=== PATIENT | male | born 1950 | race Caucasian/White ===

== ENCOUNTER 2016-04-18 10:13 | Emergency (ER) | payer OTHER ==
[2016-04-18] MEDS ORDERED: LISINOPRIL 10 MG TAB As Ordered ONE (10:42)
[2016-04-18 10:58] LABS: BASO % 0.6 % (0.0-1.0); EOS # 0.3 K/mm3 (0.0-0.50); EOS % 2.8 % (0.0-3.0); LARGE UNSTAINED CELL # 0.1 K/mm3 (0.0-0.4); LARGE UNSTAINED CELL % 1.5 % (0.0-4.0); LYMPH # 1.9 K/mm3 (1.5-4.5); LYMPH % 20.2 % (24.0-44.0); MEAN CORPUSCULAR HGB CONC 34.1 g/dl (32.0-36.5); MEAN CORPUSCULAR VOLUME 90.7 fl (80.0-96.0); MONO # 0.3 K/mm3 (0.0-0.8); MONO % 3.2 % (0.0-5.0); NEUTROPHILS # 6.9 K/mm3 (1.8-7.7); NEUTROPHILS % 71.7 % (36.0-66.0); PLATELET COUNT, AUTOMATED 208 k/mm3 (150-450); WHITE BLOOD COUNT 9.6 K/mm3 (4.0-10.0)
[2016-04-18 11:25] LABS: ALBUMIN 3.9 GM/DL (3.2-5.2); ALBUMIN/GLOBULIN RATIO 1.15 (1.00-1.93); ALKALINE PHOSPHATASE 104 U/L (45-117); ALT/SGPT 73 U/L (12-78); ANION GAP 11 MEQ/L (8-16); AST/SGOT 40 U/L (15-37); BILIRUBIN,DIRECT < 0.1 MG/DL (0.0-0.2); BILIRUBIN,TOTAL 0.2 MG/DL (0.2-1.0); BLOOD UREA NITROGEN 18 MG/DL (7-18); CALCIUM LEVEL 9.1 MG/DL (8.8-10.2); CARBON DIOXIDE LEVEL 25 MEQ/L (21-32); CHLORIDE LEVEL 106 MEQ/L (98-107); CREATININE FOR GFR 1.57 MG/DL (0.70-1.30); GLOMERULAR FILTRATION RATE 47.6 (>49); GLUCOSE, FASTING 146 MG/DL (80-110); POTASSIUM SERUM 4.3 MEQ/L (3.5-5.1); SODIUM LEVEL 142 MEQ/L (136-145); TOTAL PROTEIN 7.3 GM/DL (6.4-8.2)
[2016-04-18] MEDS ORDERED: METOPROLOL TART 50 MG TAB As Ordered ONE (12:06)
--- NOTE | 2016-04-18 13:40 | EDDOCDS ---
Physician Documentation [facility] Name: Hesham Pollock Age: 65 yrs Sex: Male : 1950 Arrival Date: 04/18/2016 Time: 10:13 Bed PR Private MD: No Pcp Disposition: 04/18/16 13:21 Discharged to Home/Self Care. Impression: Essential (primary) hypertension. - Condition is Stable. - Discharge Instructions: Hypertension. - Prescriptions for Metoprolol Tartrate 25 mg Oral Tablet - take 1 tablet by ORAL route 2 times per day with a meal; 20 tablet. - Medication Reconciliation, Local Pharmacy Hours form. - [facility]; When: Call to arrange an appointment; Reason: Further diagnostic work-up, Recheck today's complaints, Continuance of care. - Problem is an ongoing problem. - Symptoms are unchanged. Historical: - Allergies: no known allergies; - Home Meds: 1. aspirin 81 mg Oral cpDR 81 mg daily (Last dose: 04/18/2016) - PMHx: none; - PSHx: none; - Social history: Smoking status: Patient uses tobacco products, current every day smoker. No barriers to communication noted, The patient speaks fluent Croatian, Speaks appropriately for age. - Family history: Not pertinent. - : The pt / caregiver states he / she is not on anticoagulants. Home medication list is obtained from the patient. - Exposure Risk Screening:: None identified. Vital Signs: 04/18 10:17 BP 201 / 100; Pulse 107; Resp 18 S; Temp 98.3(O); Pulse Ox 97% on R/A; Weight 94.8 kg / gr2 209 lbs (R); Height 5 ft. 10 in. (177.80 cm) (R); Pain 2/10; 10:25 BP 178 / 92 RA Sitting (man/); ead 12:03 BP 182 / 98 RA Sitting (man/lg); jc4 12:03 jc4 13:14 BP 157 / 86; Pulse 76; Resp 18; Pulse Ox 96% on R/A; ar3 10:17 Body Mass Index 29.99 (94.80 kg, 177.80 cm) gr2 12:03 Kelly Martin NP notified of patient blood pressure jc4 MDM: 10:39 Lisinopril 20 mg PO once ordered. ke 10:40 Basic Metabolic Profile Ordered. EDMS 10:40 CBC with Diff Ordered. EDMS 10:40 Cardiac Injury Profile Ordered. EDMS 10:40 Troponin Ordered. EDMS 10:40 Liver Profile Ordered. EDMS 10:41 ECG WITH READING ER PHYS+CARDIAG ordered. EDMS 10:49 Financial registration complete. pm4 10:59 [facility] Payment Agreement was scanned into [employer] and attached to record. pm4 11:28 Basic Metabolic Profile Reviewed. ke 11:28 CBC with Diff Reviewed. ke 11:28 Liver Profile Reviewed. ke 11:28 Cardiac Injury Profile Reviewed. ke 11:28 Troponin Reviewed. ke 12:04 Metoprolol (Tartrate) 50 mg PO once ordered. ke Administered Medications: 10:58 Drug: Lisinopril 20 mg [lisinopril 10 mg tablet (2 tabs)] Route: PO; jc4 12:09 Drug: Metoprolol 50 mg [metoprolol tartrate 50 mg tablet (1 tabs)] Route: PO; jc4 Signatures: Dispatcher [employer] EDMS Jamil Martin, STATISTICAL PROGRAMMER ANALYST STATISTICAL PROGRAMMER ANALYST Haydee Zabala,RN RN rs3 Sera Bain RN RN jc4 Sarika Smith,RN RN ead Raciel Perales, Rory Reg pm4 The chart was reviewed and I authenticate all verbal orders and agree with the evaluation and treatment provided.Attachments: 10:59 [facility] Payment Agreement pm4 MTDD
--- NOTE | 2016-04-18 13:40 | EDDOCDS ---
Nurse's Notes [facility] Name: Hesham Pollock Age: 65 yrs Sex: Male : 1950 Arrival Date: 04/18/2016 Time: 10:13 Bed PR Private MD: No Pcp Diagnosis: Essential (primary) hypertension Presentation: 04/18 10:25 Presenting complaint: Child states: daughter reports pt was seen at [facility] the other ead day and had elevated BP. denies hx of hypertension. Pt does not have primary but is to be seen by Dr. Dwyer in July. Daughter called [facility] ready today regarding high blood pressure and told to come to ER. Pt denies headache, dizziness, chest pain. Adult Sepsis Screening: The patient does not have new or worsening altered mentation. Patient's respiratory rate is less than 22. Systolic blood pressure is greater than 100. Patient has a qSOFA score of 0- Negative Sepsis Screen. Suicide/Homicide risk assessment- the patient denies having any suicidal and/or homicidal ideations and does not present with any other emotional, behavioral or mental health complaints. 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 Transition of care: patient was not received from another setting of care. 10:25 Acuity: PRECIOUS Level 3 ead 10:25 Method Of Arrival: Walkin/Carried/Asstd ead Triage Assessment: 10:27 General: Appears in no apparent distress, comfortable, Behavior is appropriate for age, ead cooperative, pleasant. Pain: Denies pain. Neurological: Level of Consciousness is awake, alert, Oriented to person, place, time, Denies dizziness, headache. Cardiovascular: Chest pain is denied. Respiratory: Denies shortness of breath. Derm: Skin is pink, warm & dry. 10:28 Pt Declines HIV testing. ead Historical: - Allergies: no known allergies; - Home Meds: 1. aspirin 81 mg Oral cpDR 81 mg daily (Last dose: 04/18/2016) - PMHx: none; - PSHx: none; - Social history: Smoking status: Patient uses tobacco products, current every day smoker. No barriers to communication noted, The patient speaks fluent Mexican, Speaks appropriately for age. - Family history: Not pertinent. - : The pt / caregiver states he / she is not on anticoagulants. Home medication list is obtained from the patient. - Exposure Risk Screening:: None identified. Screenin:09 Screening information is obtained from the patient. Fall risk: No risks identified. jc4 Assistance ADL's: requires no assistance with activities of daily living. Abuse/DV Screen: The patient / caregiver reports he/she is: not in a situation that causes fear, pain or injury. Nutritional screening: No deficits noted. Advance Directives: Currently, there is no health care proxy. There is no active DNR order. There is no living will. There is no Power of Equipment Engineering Technician. home support is adequate. Assessment: 12:11 General: Appears in no apparent distress, Behavior is cooperative, pleasant. jc4 Neurological: Level of Consciousness is awake, alert, Oriented to person, place, time, Denies blurred vision dizziness, headache. EENT: Oral mucosa is moist. Cardiovascular: Heart tones S1 S2 present. Respiratory: Airway is patent Respiratory effort is even, unlabored, Respiratory pattern is regular, symmetrical. Derm: Skin is pink, warm & dry. Vital Signs: 10:17 BP 201 / 100; Pulse 107; Resp 18 S; Temp 98.3(O); Pulse Ox 97% on R/A; Weight 94.8 kg gr2 (R); Height 5 ft. 10 in. (177.80 cm) (R); Pain 2/10; 10:25 BP 178 / 92 RA Sitting (man/); ead 12:03 BP 182 / 98 RA Sitting (man/lg); jc4 12:03 jc4 13:14 BP 157 / 86; Pulse 76; Resp 18; Pulse Ox 96% on R/A; ar3 10:17 Body Mass Index 29.99 (94.80 kg, 177.80 cm) gr2 12:03 Kelly Martin NP notified of patient blood pressure jc4 Vitals: 10:17 Log In Time: April 18, 2016 at 10:17. RN notified that patient meets Red Flag gr2 criteria. ED Course: 10:15 Patient visited by Deepak Swenson. gr2 10:15 Patient moved to Waiting gr2 10:16 No Pcp is Private Physician. gr2 10:22 Patient visited by Deepak Swenson. gr2 10:22 Patient moved to Pre RCE gr2 10:27 Triage Initiated ead 10:31 Patient moved to Triage 1 ead 10:35 [facility] ke 10:35 Patient visited by Jamil Martin FNP. ke 10:35 Patient visited by Jamil Martin FNP. ke 10:48 Patient name changed from Hesham\S\M\S\Kingsley\S\ to Hesham\S\Edgard\S\Kingsley. EDMS 10:48 EKG done. (by ED staff). Reviewed by Jamil GIPSON. ar3 10:49 Patient visited by Maki Brown PCA. ar3 10:53 Liver Profile Sent. ar3 10:53 Basic Metabolic Profile Sent. ar3 10:53 CBC with Diff Sent. ar3 10:53 Cardiac Injury Profile Sent. ar3 10:53 Troponin Sent. ar3 10:58 Patient moved to TR3 jc4 10:59 [facility] Payment Agreement was scanned into [employer] and attached to record. pm4 11:14 Patient visited by Jamil Martin FNP. ke 11:44 Patient visited by Jamil Martin FNP. ke 11:59 Patient moved to PR2 / 26 jc4 12:08 The patient / caregiver is instructed regarding the plan of care and ED course. jc4 12:13 Patient moved to TR1 jc4 12:21 Patient visited by Jamil Martin FNP. ke 12:58 Patient visited by Jamil Martin FNP. ke 13:08 Patient moved to PR1 / 25 ead 13:14 Patient visited by Maki Brown PCA. ar3 13:21 [facility] is Referral Physician. ke 13:38 No IV's were initiated during this patient's visit. No procedures done that require rs3 assistance. Administered Medications: 10:58 Drug: Lisinopril 20 mg [lisinopril 10 mg tablet (2 tabs)] Route: PO; jc4 12:09 Drug: Metoprolol 50 mg [metoprolol tartrate 50 mg tablet (1 tabs)] Route: PO; jc4 Order Results: Lab Order: Basic Metabolic Profile; SPEC'M 04/18/16 10:52 Test: GLUCOSE, FASTING; Value: 146; Range: 80-110; Abnormal: Above high normal; Units: MG/DL; Status: F Test: BLOOD UREA NITROGEN; Value: 18; Range: 7-18; Units: MG/DL; Status: F Test: CREATININE FOR GFR; Value: 1.57; Range: 0.70-1.30; Abnormal: Above high normal; Units: MG/DL; Status: F Test: GLOMERULAR FILTRATION RATE; Value: 47.6; Range: >49; Abnormal: Below low normal; Status: F Test: SODIUM LEVEL; Value: 142; Range: 136-145; Units: MEQ/L; Status: F Test: POTASSIUM SERUM; Value: 4.3; Range: 3.5-5.1; Units: MEQ/L; Status: F Test: CHLORIDE LEVEL; Value: 106; Range: 98-107; Units: MEQ/L; Status: F Test: CARBON DIOXIDE LEVEL; Value: 25; Range: 21-32; Units: MEQ/L; Status: F Test: ANION GAP; Value: 11; Range: 8-16; Units: MEQ/L; Status: F Test: CALCIUM LEVEL; Value: 9.1; Range: 8.8-10.2; Units: MG/DL; Status: F Test Note: ; Units are mL/min/1.73 m2 Chronic Kidney Disease Staging per NKF: Stage I & II GFR >=60 Normal to Mildly Decreased Stage III GFR 30-59 Moderately Decreased Stage IV GFR 15-29 Severely Decreased Stage V GFR <15 Very Little GFR Left ESRD GFR <15 on ENGINEERING SYSTEMS ANALYST Lab Order: CBC with Diff; SPEC'M 04/18/16 10:52 Test: WHITE BLOOD COUNT; Value: 9.6; Range: 4.0-10.0; Units: K/mm3; Status: F Test: RED BLOOD COUNT; Value: 5.47; Range: 4.30-6.10; Units: M/mm3; Status: F Test: HEMOGLOBIN; Value: 16.9; Range: 14.0-18.0; Units: g/dl; Status: F Test: HEMATOCRIT; Value: 49.6; Range: 42.0-52.0; Units: %; Status: F Test: MEAN CORPUSCULAR VOLUME; Value: 90.7; Range: 80.0-96.0; Units: fl; Status: F Test: MEAN CORPUSCULAR HEMOGLOBIN; Value: 31.0; Range: 27.0-33.0; Units: pg; Status: F Test: MEAN CORPUSCULAR HGB CONC; Value: 34.1; Range: 32.0-36.5; Units: g/dl; Status: F Test: RED CELL DISTRIBUTION WIDTH; Value: 12.0; Range: 11.5-14.5; Units: %; Status: F Test: PLATELET COUNT, AUTOMATED; Value: 208; Range: 150-450; Units: k/mm3; Status: F Test: NEUTROPHILS %; Value: 71.7; Range: 36.0-66.0; Abnormal: Above high normal; Units: %; Status: F Test: LYMPH %; Value: 20.2; Range: 24.0-44.0; Abnormal: Below low normal; Units: %; Status: F Test: MONO %; Value: 3.2; Range: 0.0-5.0; Units: %; Status: F Test: EOS %; Value: 2.8; Range: 0.0-3.0; Units: %; Status: F Test: BASO %; Value: 0.6; Range: 0.0-1.0; Units: %; Status: F Test: LARGE UNSTAINED CELL %; Value: 1.5; Range: 0.0-4.0; Units: %; Status: F Test: NEUTROPHILS #; Value: 6.9; Range: 1.8-7.7; Units: K/mm3; Status: F Test: LYMPH #; Value: 1.9; Range: 1.5-4.5; Units: K/mm3; Status: F Test: MONO #; Value: 0.3; Range: 0.0-0.8; Units: K/mm3; Status: F Test: EOS #; Value: 0.3; Range: 0.0-0.50; Units: K/mm3; Status: F Test: BASO #; Value: 0.0; Range: 0.0-0.2; Units: K/mm3; Status: F Test: LARGE UNSTAINED CELL #; Value: 0.1; Range: 0.0-0.4; Units: K/mm3; Status: F Lab Order: Cardiac Injury Profile; SPEC'M 04/18/16 10:52 Test: CPK CREATINE PHOSPHOKINASE; Value: 53; Range: 39-308; Units: U/L; Status: F Test: CK-MB VALUE MASS; Value: 1.0; Range: 0.0-3.6; Units: NG/ML; Status: F Test: MB/CK RELATIVE INDEX; Value: 1.88; Range: < OR =4; Status: F Test Note: ; DIAGNOSIS CRITERIA MMB ng/ml Relative Index (RI) NON-AMI < or = 5 N/A BURRIS ZONE > 5 < or = 4 AMI > 5 > 4 Lab Order: Troponin; SPEC'M 04/18/16 10:52 Test: TROPONIN I; Value: < 0.02; Range: < 0.10; Units: NG/ML; Status: F Test Note: ; Troponin I Reference Interval for [employer] LOCI: 99th Percentile= 0.00-0.045 ng/ml Risk Stratification: <= 0.10 ng/ml Decreased Risk for Adverse Clinical Events. 0.10-1.50 ng/ml Increased Risk for Adverse Clinical Events. Evaluation of additional criterion and/or repeat testing in 2-6 hours is suggested to rule out myocardial damage. >= 1.50 ng/ml Indicative of Myocardial Injury. Lab Order: Liver Profile; SPEC'M 04/18/16 10:52 Test: AST/SGOT; Value: 40; Range: 15-37; Abnormal: Above high normal; Units: U/L; Status: F Test: ALT/SGPT; Value: 73; Range: 12-78; Units: U/L; Status: F Test: ALKALINE PHOSPHATASE; Value: 104; Range: 45-117; Units: U/L; Status: F Test: BILIRUBIN,TOTAL; Value: 0.2; Range: 0.2-1.0; Units: MG/DL; Status: F Test: BILIRUBIN,DIRECT; Value: < 0.1; Range: 0.0-0.2; Units: MG/DL; Status: F Test: TOTAL PROTEIN; Value: 7.3; Range: 6.4-8.2; Units: GM/DL; Status: F Test: ALBUMIN; Value: 3.9; Range: 3.2-5.2; Units: GM/DL; Status: F Test: ALBUMIN/GLOBULIN RATIO; Value: 1.15; Range: 1.00-1.93; Status: F Outcome: 13:21 Discharge ordered by Provider. rossi 13:37 Discharge Assessment: patient administered narcotics - no. The following High Risk rs3 Discharge criteria are identified: None. Discharged to home with family. Condition: stable. Discharge instructions given to patient, Instructed on discharge instructions, follow up and referral plans. medication usage, Demonstrated understanding of instructions, medications, Pt was receptive of discharge instructions/ teaching. Prescriptions given X 1. No special radiology studies were completed. Property :Personal belongings accompany Pt. 13:39 Patient left the ED. rs3 Signatures: Dispatcher [employer] EDMS Jamil Martin, ENTERTAINMENT DANCER ENTERTAINMENT DANCER Haydee ZabalaRN RN rs3 Maki Brown, ROSE GRADER ROSE GRADER ar3 Sera Bain RN RN jc4 Deepak Swenson2 Sarika Smith,RN RN Raciel Bobby, Reg Reg pm4 KALLI
--- NOTE | 2016-04-19 19:44 | ECGEPIP ---
Stationary ECG Study [facility] - ED Test Date: 2016-04-18 Pat Name: JODEE GUTIERREZ Department: Room: - Gender: M Community Outreach Worker: lilia : 1950 Requested By: PHILIP GIPSON Order Number: [id number] Reading MD: Laura Fisher Measurements Intervals Reagan Rate: 112 P: 59 AR: 160 QRS: 13 QRSD: 98 T: 2 QT: 326 QTc: 445 Interpretive Statements SINUS TACHYCARDIA INFERIOR MYOCARDIAL INFARCTION, OF INDETERMINATE AGE CLINICAL CORRELATION NO PRIOR FOR COMPARISON Electronically Signed On 04-19-2016 19:43:58 EST by Laura Fisher
--- NOTE | 2016-04-20 14:40 | EDDOCDS ---
Physician Documentation [facility] Name: Hesham Pollock Age: 65 yrs Sex: Male : 1950 Arrival Date: 04/18/2016 Time: 10:13 Bed PR Private MD: No Pcp Disposition: 04/18/16 13:21 Discharged to Home/Self Care. Impression: Essential (primary) hypertension. - Condition is Stable. - Discharge Instructions: Hypertension. - Prescriptions for Metoprolol Tartrate 25 mg Oral Tablet - take 1 tablet by ORAL route 2 times per day with a meal; 20 tablet. - Medication Reconciliation, Local Pharmacy Hours form. - [facility]; When: Call to arrange an appointment; Reason: Further diagnostic work-up, Recheck today's complaints, Continuance of care. - Problem is an ongoing problem. - Symptoms are unchanged. Historical: - Allergies: no known allergies; - Home Meds: 1. aspirin 81 mg Oral cpDR 81 mg daily (Last dose: 04/18/2016) - PMHx: none; - PSHx: none; - Social history: Smoking status: Patient uses tobacco products, current every day smoker. No barriers to communication noted, The patient speaks fluent Welsh, Speaks appropriately for age. - Family history: Not pertinent. - : The pt / caregiver states he / she is not on anticoagulants. Home medication list is obtained from the patient. - Exposure Risk Screening:: None identified. Vital Signs: 04/18 10:17 BP 201 / 100; Pulse 107; Resp 18 S; Temp 98.3(O); Pulse Ox 97% on R/A; Weight 94.8 kg / gr2 209 lbs (R); Height 5 ft. 10 in. (177.80 cm) (R); Pain 2/10; 10:25 BP 178 / 92 RA Sitting (man/); ead 12:03 BP 182 / 98 RA Sitting (man/lg); jc4 12:03 jc4 13:14 BP 157 / 86; Pulse 76; Resp 18; Pulse Ox 96% on R/A; ar3 10:17 Body Mass Index 29.99 (94.80 kg, 177.80 cm) gr2 12:03 Kelly Martin NP notified of patient blood pressure jc4 MDM: 10:39 Lisinopril 20 mg PO once ordered. ke 10:40 Basic Metabolic Profile Ordered. EDMS 10:40 CBC with Diff Ordered. EDMS 10:40 Cardiac Injury Profile Ordered. EDMS 10:40 Troponin Ordered. EDMS 10:40 Liver Profile Ordered. EDMS 10:41 ECG WITH READING ER PHYS+CARDIAG ordered. EDMS 10:49 Financial registration complete. pm4 10:59 [facility] Payment Agreement was scanned into [employer] and attached to record. pm4 11:28 Basic Metabolic Profile Reviewed. ke 11:28 CBC with Diff Reviewed. ke 11:28 Liver Profile Reviewed. ke 11:28 Cardiac Injury Profile Reviewed. ke 11:28 Troponin Reviewed. ke 12:04 Metoprolol (Tartrate) 50 mg PO once ordered. ke 04/19 02:22 T-Sheet-- Draft Copy was scanned into [employer] and attached to record. hs2 10:36 ECG/EKG was scanned into [employer] and attached to record. gb Administered Medications: 04/18 10:58 Drug: Lisinopril 20 mg [lisinopril 10 mg tablet (2 tabs)] Route: PO; jc4 12:09 Drug: Metoprolol 50 mg [metoprolol tartrate 50 mg tablet (1 tabs)] Route: PO; jc4 Signatures: Dispatcher [employer] EDMS Tessa Oliveira, Reg Reg gb Jamil Martin, ENVIRONMENTAL SERVICE AIDE ENVIRONMENTAL SERVICE AIDE Haydee ZabalaRN RN rs3 Sera Bain RN RN jc4 Sarika SmithRN RN Carmela Arcos, Reg Reg hs2 Raciel Perales, Reg Reg pm4 The chart was reviewed and I authenticate all verbal orders and agree with the evaluation and treatment provided.Attachments: 10:59 [facility] Payment Agreement pm4 04/19 02:22 T-Sheet-- Draft Copy hs2 10:36 ECG/EKG gb Chart Complete MTDD
--- NOTE | 2016-04-20 14:40 | EDDOCDS ---
Nurse's Notes [facility] Name: Hesham Pollock Age: 65 yrs Sex: Male : 1950 Arrival Date: 04/18/2016 Time: 10:13 Bed PR Private MD: No Pcp Diagnosis: Essential (primary) hypertension Presentation: 04/18 10:25 Presenting complaint: Child states: daughter reports pt was seen at [facility] the other ead day and had elevated BP. denies hx of hypertension. Pt does not have primary but is to be seen by Dr. Dwyer in July. Daughter called [facility] ready today regarding high blood pressure and told to come to ER. Pt denies headache, dizziness, chest pain. Adult Sepsis Screening: The patient does not have new or worsening altered mentation. Patient's respiratory rate is less than 22. Systolic blood pressure is greater than 100. Patient has a qSOFA score of 0- Negative Sepsis Screen. Suicide/Homicide risk assessment- the patient denies having any suicidal and/or homicidal ideations and does not present with any other emotional, behavioral or mental health complaints. 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 Transition of care: patient was not received from another setting of care. 10:25 Acuity: PRECIOUS Level 3 ead 10:25 Method Of Arrival: Walkin/Carried/Asstd ead Triage Assessment: 10:27 General: Appears in no apparent distress, comfortable, Behavior is appropriate for age, ead cooperative, pleasant. Pain: Denies pain. Neurological: Level of Consciousness is awake, alert, Oriented to person, place, time, Denies dizziness, headache. Cardiovascular: Chest pain is denied. Respiratory: Denies shortness of breath. Derm: Skin is pink, warm & dry. 10:28 Pt Declines HIV testing. ead Historical: - Allergies: no known allergies; - Home Meds: 1. aspirin 81 mg Oral cpDR 81 mg daily (Last dose: 04/18/2016) - PMHx: none; - PSHx: none; - Social history: Smoking status: Patient uses tobacco products, current every day smoker. No barriers to communication noted, The patient speaks fluent Nauruan, Speaks appropriately for age. - Family history: Not pertinent. - : The pt / caregiver states he / she is not on anticoagulants. Home medication list is obtained from the patient. - Exposure Risk Screening:: None identified. Screenin:09 Screening information is obtained from the patient. Fall risk: No risks identified. jc4 Assistance ADL's: requires no assistance with activities of daily living. Abuse/DV Screen: The patient / caregiver reports he/she is: not in a situation that causes fear, pain or injury. Nutritional screening: No deficits noted. Advance Directives: Currently, there is no health care proxy. There is no active DNR order. There is no living will. There is no Power of Bark Peeler. home support is adequate. Assessment: 12:11 General: Appears in no apparent distress, Behavior is cooperative, pleasant. jc4 Neurological: Level of Consciousness is awake, alert, Oriented to person, place, time, Denies blurred vision dizziness, headache. EENT: Oral mucosa is moist. Cardiovascular: Heart tones S1 S2 present. Respiratory: Airway is patent Respiratory effort is even, unlabored, Respiratory pattern is regular, symmetrical. Derm: Skin is pink, warm & dry. Vital Signs: 10:17 BP 201 / 100; Pulse 107; Resp 18 S; Temp 98.3(O); Pulse Ox 97% on R/A; Weight 94.8 kg gr2 (R); Height 5 ft. 10 in. (177.80 cm) (R); Pain 2/10; 10:25 BP 178 / 92 RA Sitting (man/); ead 12:03 BP 182 / 98 RA Sitting (man/lg); jc4 12:03 jc4 13:14 BP 157 / 86; Pulse 76; Resp 18; Pulse Ox 96% on R/A; ar3 10:17 Body Mass Index 29.99 (94.80 kg, 177.80 cm) gr2 12:03 Kelly Martin NP notified of patient blood pressure jc4 Vitals: 10:17 Log In Time: April 18, 2016 at 10:17. RN notified that patient meets Red Flag gr2 criteria. ED Course: 10:15 Patient visited by eDepak Swenson. gr2 10:15 Patient moved to Waiting gr2 10:16 No Pcp is Private Physician. gr2 10:22 Patient visited by Deepak Swenson. gr2 10:22 Patient moved to Pre RCE gr2 10:27 Triage Initiated ead 10:31 Patient moved to Triage 1 ead 10:35 Jam[facility] FNP [facility]. ke 10:35 Patient visited by Jamil Martin FNP. ke 10:35 Patient visited by Jamil Martin FNP. ke 10:48 Patient name changed from Hesham\S\M\S\Hollsopple\S\ to Hesham\S\Edgard\S\Hollsopple. EDMS 10:48 EKG done. (by ED staff). Reviewed by Jamil GIPSON. ar3 10:49 Patient visited by Maki Brown PCA. ar3 10:53 Liver Profile Sent. ar3 10:53 Basic Metabolic Profile Sent. ar3 10:53 CBC with Diff Sent. ar3 10:53 Cardiac Injury Profile Sent. ar3 10:53 Troponin Sent. ar3 10:58 Patient moved to TR3 jc4 10:59 [facility] Payment Agreement was scanned into [email or web address] and attached to record. pm4 11:14 Patient visited by Jamil Martin FNP. ke 11:44 Patient visited by Jamil Martin FNP. ke 11:59 Patient moved to PR2 / 26 jc4 12:08 The patient / caregiver is instructed regarding the plan of care and ED course. jc4 12:13 Patient moved to TR1 jc4 12:21 Patient visited by Jamil Martin FNP. ke 12:58 Patient visited by Jamil Martin FNP. ke 13:08 Patient moved to PR1 / 25 ead 13:14 Patient visited by Maki Brown PCA. ar3 13:21 [facility] is Referral Physician. ke 13:38 No IV's were initiated during this patient's visit. No procedures done that require rs3 assistance. 04/19 02:22 T-Sheet-- Draft Copy was scanned into [email or web address] and attached to record. hs2 10:36 ECG/EKG was scanned into [email or web address] and attached to record. gb 20:25 EKG-ADULT Returned. EDMS Administered Medications: 04/18 10:58 Drug: Lisinopril 20 mg [lisinopril 10 mg tablet (2 tabs)] Route: PO; jc4 12:09 Drug: Metoprolol 50 mg [metoprolol tartrate 50 mg tablet (1 tabs)] Route: PO; jc4 Order Results: Lab Order: Basic Metabolic Profile; SPEC'M 04/18/16 10:52 Test: GLUCOSE, FASTING; Value: 146; Range: 80-110; Abnormal: Above high normal; Units: MG/DL; Status: F Test: BLOOD UREA NITROGEN; Value: 18; Range: 7-18; Units: MG/DL; Status: F Test: CREATININE FOR GFR; Value: 1.57; Range: 0.70-1.30; Abnormal: Above high normal; Units: MG/DL; Status: F Test: GLOMERULAR FILTRATION RATE; Value: 47.6; Range: >49; Abnormal: Below low normal; Status: F Test: SODIUM LEVEL; Value: 142; Range: 136-145; Units: MEQ/L; Status: F Test: POTASSIUM SERUM; Value: 4.3; Range: 3.5-5.1; Units: MEQ/L; Status: F Test: CHLORIDE LEVEL; Value: 106; Range: 98-107; Units: MEQ/L; Status: F Test: CARBON DIOXIDE LEVEL; Value: 25; Range: 21-32; Units: MEQ/L; Status: F Test: ANION GAP; Value: 11; Range: 8-16; Units: MEQ/L; Status: F Test: CALCIUM LEVEL; Value: 9.1; Range: 8.8-10.2; Units: MG/DL; Status: F Test Note: ; Units are mL/min/1.73 m2 Chronic Kidney Disease Staging per NKF: Stage I & II GFR >=60 Normal to Mildly Decreased Stage III GFR 30-59 Moderately Decreased Stage IV GFR 15-29 Severely Decreased Stage V GFR <15 Very Little GFR Left ESRD GFR <15 on SENIOR RESERVOIR ENGINEER Lab Order: CBC with Diff; SPEC'M 04/18/16 10:52 Test: WHITE BLOOD COUNT; Value: 9.6; Range: 4.0-10.0; Units: K/mm3; Status: F Test: RED BLOOD COUNT; Value: 5.47; Range: 4.30-6.10; Units: M/mm3; Status: F Test: HEMOGLOBIN; Value: 16.9; Range: 14.0-18.0; Units: g/dl; Status: F Test: HEMATOCRIT; Value: 49.6; Range: 42.0-52.0; Units: %; Status: F Test: MEAN CORPUSCULAR VOLUME; Value: 90.7; Range: 80.0-96.0; Units: fl; Status: F Test: MEAN CORPUSCULAR HEMOGLOBIN; Value: 31.0; Range: 27.0-33.0; Units: pg; Status: F Test: MEAN CORPUSCULAR HGB CONC; Value: 34.1; Range: 32.0-36.5; Units: g/dl; Status: F Test: RED CELL DISTRIBUTION WIDTH; Value: 12.0; Range: 11.5-14.5; Units: %; Status: F Test: PLATELET COUNT, AUTOMATED; Value: 208; Range: 150-450; Units: k/mm3; Status: F Test: NEUTROPHILS %; Value: 71.7; Range: 36.0-66.0; Abnormal: Above high normal; Units: %; Status: F Test: LYMPH %; Value: 20.2; Range: 24.0-44.0; Abnormal: Below low normal; Units: %; Status: F Test: MONO %; Value: 3.2; Range: 0.0-5.0; Units: %; Status: F Test: EOS %; Value: 2.8; Range: 0.0-3.0; Units: %; Status: F Test: BASO %; Value: 0.6; Range: 0.0-1.0; Units: %; Status: F Test: LARGE UNSTAINED CELL %; Value: 1.5; Range: 0.0-4.0; Units: %; Status: F Test: NEUTROPHILS #; Value: 6.9; Range: 1.8-7.7; Units: K/mm3; Status: F Test: LYMPH #; Value: 1.9; Range: 1.5-4.5; Units: K/mm3; Status: F Test: MONO #; Value: 0.3; Range: 0.0-0.8; Units: K/mm3; Status: F Test: EOS #; Value: 0.3; Range: 0.0-0.50; Units: K/mm3; Status: F Test: BASO #; Value: 0.0; Range: 0.0-0.2; Units: K/mm3; Status: F Test: LARGE UNSTAINED CELL #; Value: 0.1; Range: 0.0-0.4; Units: K/mm3; Status: F Lab Order: Cardiac Injury Profile; [facility] 04/18/16 10:52 Test: CPK CREATINE PHOSPHOKINASE; Value: 53; Range: 39-308; Units: U/L; Status: F Test: CK-MB VALUE MASS; Value: 1.0; Range: 0.0-3.6; Units: NG/ML; Status: F Test: MB/CK RELATIVE INDEX; Value: 1.88; Range: < OR =4; Status: F Test Note: ; DIAGNOSIS CRITERIA MMB ng/ml Relative Index (RI) NON-AMI < or = 5 N/A BURRIS ZONE > 5 < or = 4 AMI > 5 > 4 Lab Order: Troponin; [facility] 04/18/16 10:52 Test: TROPONIN I; Value: < 0.02; Range: < 0.10; Units: NG/ML; Status: F Test Note: ; Troponin I Reference Interval for erento LOCI: 99th Percentile= 0.00-0.045 ng/ml Risk Stratification: <= 0.10 ng/ml Decreased Risk for Adverse Clinical Events. 0.10-1.50 ng/ml Increased Risk for Adverse Clinical Events. Evaluation of additional criterion and/or repeat testing in 2-6 hours is suggested to rule out myocardial damage. >= 1.50 ng/ml Indicative of Myocardial Injury. Lab Order: Liver Profile; SPEC'M 04/18/16 10:52 Test: AST/SGOT; Value: 40; Range: 15-37; Abnormal: Above high normal; Units: U/L; Status: F Test: ALT/SGPT; Value: 73; Range: 12-78; Units: U/L; Status: F Test: ALKALINE PHOSPHATASE; Value: 104; Range: 45-117; Units: U/L; Status: F Test: BILIRUBIN,TOTAL; Value: 0.2; Range: 0.2-1.0; Units: MG/DL; Status: F Test: BILIRUBIN,DIRECT; Value: < 0.1; Range: 0.0-0.2; Units: MG/DL; Status: F Test: TOTAL PROTEIN; Value: 7.3; Range: 6.4-8.2; Units: GM/DL; Status: F Test: ALBUMIN; Value: 3.9; Range: 3.2-5.2; Units: GM/DL; Status: F Test: ALBUMIN/GLOBULIN RATIO; Value: 1.15; Range: 1.00-1.93; Status: F Radiology Order: EKG-ADULT Test: EKG-ADULT REASON FOR EXAMINATION: htn; Stationary ECG Study; [facility] - ED; ; Test Date: 2016-04-18; Pat Name: HESHAM POLLOCK Department:; Room: -; Gender: M Establishment Guide: ar; : 1950 Requested By: JAMIL GIPSON; Order Number: [id number] Reading MD: Laura Fisher; Measurements; Intervals [place]; Rate: 112 P: 59; KS: 160 QRS: 13; QRSD: 98 T: 2; QT: 326; QTc: 445; Interpretive Statements; SINUS TACHYCARDIA; INFERIOR MYOCARDIAL INFARCTION, OF INDETERMINATE AGE; CLINICAL CORRELATION; NO PRIOR FOR COMPARISON; Electronically Signed On 04-19-2016 19:43:58 EST by Laura Fisher; Outcome: 13:21 Discharge ordered by Provider. ke 13:37 Discharge Assessment: patient administered narcotics - no. The following High Risk rs3 Discharge criteria are identified: None. Discharged to home with family. Condition: stable. Discharge instructions given to patient, Instructed on discharge instructions, follow up and referral plans. medication usage, Demonstrated understanding of instructions, medications, Pt was receptive of discharge instructions/ teaching. Prescriptions given X 1. No special radiology studies were completed. Property :Personal belongings accompany Pt. 13:39 Patient left the ED. rs3 Signatures: Dispatcher [employer] EDMI Tessa Oliveira, Reg Reg gb Jamil Martin FNP FNP ke Soosairaj, RosemaryRN RN rs3 Maki Brown, MATERIAL SCHEDULER MATERIAL SCHEDULER ar3 Sera Bain RN RN Deepak Chirinos gr2 Sarika Smith,RN Carmela Madrigal, Reg Reg hs2 Raciel Perales, Reg Reg pm4 Chart Complete MTDD
--- NOTE | 2016-04-20 14:40 | EDDOCDS ---
Physician Documentation [facility] Name: Hesham Pollock Age: 65 yrs Sex: Male : 1950 Arrival Date: 04/18/2016 Time: 10:13 Bed PR Private MD: No Pcp Disposition: 04/18/16 13:21 Discharged to Home/Self Care. Impression: Essential (primary) hypertension. - Condition is Stable. - Discharge Instructions: Hypertension. - Prescriptions for Metoprolol Tartrate 25 mg Oral Tablet - take 1 tablet by ORAL route 2 times per day with a meal; 20 tablet. - Medication Reconciliation, Local Pharmacy Hours form. - [facility] up: [facility]; When: Call to arrange an appointment; Reason: Further diagnostic work-up, Recheck today's complaints, Continuance of care. - Problem is an ongoing problem. - Symptoms are unchanged. Historical: - Allergies: no known allergies; - Home Meds: 1. aspirin 81 mg Oral cpDR 81 mg daily (Last dose: 04/18/2016) - PMHx: none; - PSHx: none; - Social history: Smoking status: Patient uses tobacco products, current every day smoker. No barriers to communication noted, The patient speaks fluent Indonesian, Speaks appropriately for age. - Family history: Not pertinent. - : The pt / caregiver states he / she is not on anticoagulants. Home medication list is obtained from the patient. - Exposure Risk Screening:: None identified. Vital Signs: 04/18 10:17 BP 201 / 100; Pulse 107; Resp 18 S; Temp 98.3(O); Pulse Ox 97% on R/A; Weight 94.8 kg / gr2 209 lbs (R); Height 5 ft. 10 in. (177.80 cm) (R); Pain 2/10; 10:25 BP 178 / 92 RA Sitting (man/); ead 12:03 BP 182 / 98 RA Sitting (man/lg); jc4 12:03 jc4 13:14 BP 157 / 86; Pulse 76; Resp 18; Pulse Ox 96% on R/A; ar3 10:17 Body Mass Index 29.99 (94.80 kg, 177.80 cm) gr2 12:03 Kelly Martin NP notified of patient blood pressure jc4 MDM: 10:39 Lisinopril 20 mg PO once ordered. ke 10:40 Basic Metabolic Profile Ordered. EDMS 10:40 CBC with Diff Ordered. EDMS 10:40 Cardiac Injury Profile Ordered. EDMS 10:40 Troponin Ordered. EDMS 10:40 Liver Profile Ordered. EDMS 10:41 ECG WITH READING ER PHYS+CARDIAG ordered. EDMS 10:49 Financial registration complete. pm4 10:59 [facility] Payment Agreement was scanned into [employer] and attached to record. pm4 11:28 Basic Metabolic Profile Reviewed. ke 11:28 CBC with Diff Reviewed. ke 11:28 Liver Profile Reviewed. ke 11:28 Cardiac Injury Profile Reviewed. ke 11:28 Troponin Reviewed. ke 12:04 Metoprolol (Tartrate) 50 mg PO once ordered. ke 04/19 02:22 T-Sheet-- Draft Copy was scanned into [employer] and attached to record. hs2 10:36 ECG/EKG was scanned into [employer] and attached to record. gb Administered Medications: 04/18 10:58 Drug: Lisinopril 20 mg [lisinopril 10 mg tablet (2 tabs)] Route: PO; jc4 12:09 Drug: Metoprolol 50 mg [metoprolol tartrate 50 mg tablet (1 tabs)] Route: PO; jc4 Signatures: Dispatcher [employer] EDMS Tessa Oliveira, Reg Reg gb Jamil Martin, LOGGER ALL ROUND LOGGER ALL ROUND Haydee ZabalaRN RN rs3 Sera Bain RN RN jc4 Sarika SmithRN RN Carmela Arcos, Reg Reg hs2 Raciel Perales, Reg Reg pm4 The chart was reviewed and I authenticate all verbal orders and agree with the evaluation and treatment provided.Attachments: 10:59 [facility] Payment Agreement pm4 04/19 02:22 T-Sheet-- Draft Copy hs2 10:36 ECG/EKG gb Chart Complete MTDD
== END 2016-04-18 13:39 | disposition home or self-care (01) ==
LOC: M ED 10:13
DX: I10 Essential (primary) hypertension (principal); F17.200 Nicotine dependence, unspecified, uncomplicated; Z79.82 Long term (current) use of aspirin

== ENCOUNTER → 2016-04-20 | Outpatient (REF) | payer OTHER ==
[2016-04-20 12:02] LABS: ALBUMIN/GLOBULIN RATIO 1.29 (1.00-1.93); ALKALINE PHOSPHATASE 95 U/L (45-117); ALT/SGPT 56 U/L (12-78); ANION GAP 11 MEQ/L (8-16); AST/SGOT 26 U/L (15-37); BILIRUBIN,TOTAL 0.3 MG/DL (0.2-1.0); BLOOD UREA NITROGEN 24 MG/DL (7-18); CALCIUM LEVEL 9.3 MG/DL (8.8-10.2); CARBON DIOXIDE LEVEL 23 MEQ/L (21-32); CHLORIDE LEVEL 107 MEQ/L (98-107); CREATININE FOR GFR 1.28 MG/DL (0.70-1.30); GLOMERULAR FILTRATION RATE > 60.0 (>49); GLUCOSE, FASTING 118 MG/DL (80-110); POTASSIUM SERUM 4.3 MEQ/L (3.5-5.1); SODIUM LEVEL 141 MEQ/L (136-145); TOTAL PROTEIN 7.1 GM/DL (6.4-8.2)
== END ==
LOC: M SFHCPLAZ 09:58
PROVIDERS: ATTEND Nurse Practitioner Adult Health
DX: I10 Essential (primary) hypertension (principal); R73.9 Hyperglycemia, unspecified

== ENCOUNTER → 2016-07-26 | Outpatient (REF) | payer OTHER | LOC: M SFHCCLAY 11:03 | PROVIDERS: ATTEND Family Medicine | DX: I10 Essential (primary) hypertension (principal) ==

== ENCOUNTER → 2016-07-29 | Outpatient (REF) | payer OTHER | LOC: M SFHCCLAY 12:38 | PROVIDERS: ATTEND Family Medicine | DX: D48.5 Neoplasm of uncertain behavior of skin (principal) ==

== ENCOUNTER → 2016-11-22 | Outpatient (CLI) | payer OTHER ==
--- NOTE | 2016-11-22 09:05 | REP ---
ULTRASOUND OF ABDOMINAL AORTA: Real-time sonographic evaluation of the abdominal aorta performed. There is no sonographic evidence of abdominal aortic aneurysm. Maximum AP diameter of the abdominal aorta proximally at the level of the diaphragms is 2.1 cm, mid aspect 1.8 cm and distally just above the bifurcation 1.9 cm. Right common iliac artery measures 1.0 x 1.6 cm and left 0.9 x 1.3 cm. IMPRESSION: No sonographic evidence of abdominal aortic aneurysm. Signed by Timbo Choi MD 11/22/2016 12:36 P
== END ==
LOC: M RAD 07:02
PROVIDERS: ATTEND Family Medicine
DX: E78.2 Mixed hyperlipidemia (principal); F17.210 Nicotine dependence, cigarettes, uncomplicated

== ENCOUNTER → 2017-01-18 | Outpatient (REF) | payer OTHER | LOC: M SFHCCLAY 07:51 | PROVIDERS: ATTEND Family Medicine | DX: E78.2 Mixed hyperlipidemia (principal) ==

== ENCOUNTER → 2017-05-10 | Outpatient (REF) | payer OTHER ==
[2017-05-10 12:08] LABS: ANION GAP 9 MEQ/L (8-16); BLOOD UREA NITROGEN 15 MG/DL (7-18); CALCIUM LEVEL 9.8 MG/DL (8.8-10.2); CARBON DIOXIDE LEVEL 27 MEQ/L (21-32); CHLORIDE LEVEL 103 MEQ/L (98-107); CREATININE FOR GFR 1.03 MG/DL (0.70-1.30); GLOMERULAR FILTRATION RATE > 60.0 (>49); GLUCOSE, FASTING 144 MG/DL (70-100); SODIUM LEVEL 139 MEQ/L (136-145)
== END ==
LOC: M SFHCCLAY 07:30
DX: I10 Essential (primary) hypertension (principal)
CPT/HCPCS: 80048

== ENCOUNTER → 2017-09-09 | Outpatient (CLI) | payer OTHER ==
[2017-09-09 11:16] LABS: ANION GAP 8 MEQ/L (8-16); BLOOD UREA NITROGEN 13 MG/DL (7-18); CALCIUM LEVEL 9.1 MG/DL (8.8-10.2); CARBON DIOXIDE LEVEL 28 MEQ/L (21-32); CHLORIDE LEVEL 100 MEQ/L (98-107); CREATININE FOR GFR 1.06 MG/DL (0.70-1.30); ESTIMATED AVERAGE GLUCOSE 128 MG/DL (60-110); GLOMERULAR FILTRATION RATE > 60.0 (>49); GLUCOSE, FASTING 96 MG/DL (70-100); HEMOGLOBIN A1c 6.1 %; POTASSIUM SERUM 4.3 MEQ/L (3.5-5.1); SODIUM LEVEL 136 MEQ/L (136-145)
== END ==
LOC: M WUC 08:18
DX: R73.01 Impaired fasting glucose (principal)
CPT/HCPCS: 83036

== ENCOUNTER → 2018-08-31 | Outpatient (REF) | payer OTHER ==
[2018-08-31 17:55] LABS: ALT/SGPT 60 U/L (12-78); BILIRUBIN,TOTAL 0.5 MG/DL (0.2-1.0); BLOOD UREA NITROGEN 14 MG/DL (7-18); CALCIUM LEVEL 9.5 MG/DL (8.8-10.2); CARBON DIOXIDE LEVEL 26 MEQ/L (21-32); CHLORIDE LEVEL 99 MEQ/L (98-107); CHOLESTEROL LEVEL 122 MG/DL (<200); CHOLESTEROL RISK RATIO 3.588 (<5); CREATININE FOR GFR 1.13 MG/DL (0.70-1.30); GLOMERULAR FILTRATION RATE > 60.0 (>49); GLUCOSE, FASTING 101 MG/DL (70-100); HDL CHOLESTEROL 34 MG/DL (>40); LDL CHOLESTEROL 58 MG/DL (<100); NON-HDL-C 88 MG/DL; POTASSIUM SERUM 4.7 MEQ/L (3.5-5.1); SODIUM LEVEL 134 MEQ/L (136-145); TOTAL PROTEIN 7.3 GM/DL (6.4-8.2); TRIGLYCERIDES LEVEL 148 MG/DL (<150)
== END ==
LOC: M SFHCCLAY 10:23
PROVIDERS: ATTEND Family Medicine
DX: I10 Essential (primary) hypertension (principal); E78.2 Mixed hyperlipidemia
CPT/HCPCS: 80053; 80061; G0463

== ENCOUNTER → 2021-11-12 | Outpatient (REF) | payer MEDICARE ==
[2021-11-12 12:24] LABS: BLOOD UREA NITROGEN 15 MG/DL (7-18); CALCIUM LEVEL 9.5 MG/DL (8.8-10.2); CARBON DIOXIDE LEVEL 30 MEQ/L (21-32); CHLORIDE LEVEL 92 MEQ/L (98-107); GLOMERULAR FILTRATION RATE > 60.0 (>42); GLUCOSE, FASTING 97 MG/DL (70-100); POTASSIUM SERUM 4.1 MEQ/L (3.5-5.1); SODIUM LEVEL 130 MEQ/L (136-145)
== END ==
LOC: M SFHCCLAY 09:11
PROVIDERS: ATTEND Family Medicine
DX: E78.2 Mixed hyperlipidemia (principal); I10 Essential (primary) hypertension; M54.50 Low back pain, unspecified; Z12.5 Encounter for screening for malignant neoplasm of prostate

== ENCOUNTER → 2021-11-12 | Outpatient (CLI) | payer MEDICARE | LOC: M CLY 09:28 | PROVIDERS: ATTEND Family Medicine | DX: M85.88 Other specified disorders of bone density and structure, other site (principal); M51.36 Other intervertebral disc degeneration, lumbar region; M54.50 Low back pain, unspecified; G89.29 Other chronic pain ==

== ENCOUNTER → 2022-03-18 | Outpatient (REF) | payer MEDICARE ==
[2022-03-18 18:04] LABS: BLOOD UREA NITROGEN 18 MG/DL (9-23); CALCIUM LEVEL 9.2 MG/DL (8.3-10.6); CARBON DIOXIDE LEVEL 25 MMOL/L (20-31); CHLORIDE LEVEL 91 MMOL/L (98-107); CREATININE FOR GFR 1.04 MG/DL (0.70-1.30); GLOMERULAR FILTRATION RATE > 60.0 (>42); GLUCOSE, FASTING 87 MG/DL (74-106); POTASSIUM SERUM 4.2 MMOL/L (3.5-5.1); SODIUM LEVEL 128 MMOL/L (136-145)
[2022-03-18 18:15] LABS: HEMOGLOBIN A1c 5.1 % (4.0-6.0)
== END ==
LOC: M SFHCCLAY 10:41
PROVIDERS: ATTEND Family Medicine
DX: I10 Essential (primary) hypertension (principal); Z83.3 Family history of diabetes mellitus

== ENCOUNTER → 2023-03-24 | Outpatient (REF) | payer MEDICARE ==
[2023-03-24 17:52] LABS: HEMATOCRIT 44.9 % (42.0-52.0); HEMOGLOBIN 14.3 g/dl (13.5-17.5); MEAN CORPUSCULAR HEMOGLOBIN 29.1 pg (27.0-33.0); MEAN CORPUSCULAR HGB CONC 31.8 g/dl (32.0-36.5); MEAN CORPUSCULAR VOLUME 91.3 fl (80.0-96.0); PLATELET COUNT, AUTOMATED 250 10^3/uL (150-450); RED BLOOD COUNT 4.92 10^6/uL (4.30-6.10); WHITE BLOOD COUNT 15.4 10^3/uL (4.0-10.0)
[2023-03-24 18:07] LABS: ALBUMIN 3.9 G/DL (3.2-5.2); BILIRUBIN,TOTAL 0.4 MG/DL (0.3-1.2); CALCIUM LEVEL 9.7 MG/DL (8.3-10.6); CHOLESTEROL RISK RATIO 4.33 (<5); CREATININE FOR GFR 1.27 MG/DL (0.70-1.30); GLOMERULAR FILTRATION RATE 59.5 (>42); HDL CHOLESTEROL 25.4 MG/DL (>40); LDL CHOLESTEROL 64.8 MG/DL (<100); NON-HDL-C 84.6 MG/DL; POTASSIUM SERUM 4.9 MMOL/L (3.5-5.1); TOTAL PROTEIN 6.9 G/DL (5.7-8.2)
== END ==
LOC: M SFHCCLAY 10:53
PROVIDERS: ATTEND Family Medicine
DX: I10 Essential (primary) hypertension (principal); E78.2 Mixed hyperlipidemia

== ENCOUNTER → 2023-10-31 | Outpatient (REF) | payer MEDICARE ==
[2023-10-31 11:42] LABS: BLOOD UREA NITROGEN 16 MG/DL (9-23); CALCIUM LEVEL 9.8 MG/DL (8.3-10.6); CARBON DIOXIDE LEVEL 30 MMOL/L (20-31); CHLORIDE LEVEL 93 MMOL/L (98-107); CREATININE FOR GFR 1.18 MG/DL (0.70-1.30); GLOMERULAR FILTRATION RATE > 60.0 (>42); GLUCOSE, FASTING 107 MG/DL (74-106); POTASSIUM SERUM 3.6 MMOL/L (3.5-5.1); SODIUM LEVEL 128 MMOL/L (136-145)
== END ==
LOC: M SFHCCLAY 08:44
PROVIDERS: ATTEND Family Medicine
DX: I10 Essential (primary) hypertension (principal)

== ENCOUNTER → 2023-11-29 | Outpatient (REF) | payer MEDICARE ==
[2023-11-29 17:47] LABS: ALBUMIN 4.4 G/DL (3.2-5.2); ALKALINE PHOSPHATASE 89 U/L (46-116); ALT/SGPT 33 U/L (7.0-40); AST/SGOT 19 U/L (<34); BILIRUBIN,TOTAL 0.8 MG/DL (0.3-1.2); BLOOD UREA NITROGEN 17 MG/DL (9-23); CALCIUM LEVEL 9.9 MG/DL (8.3-10.6); CARBON DIOXIDE LEVEL 29 MMOL/L (20-31); CHLORIDE LEVEL 94 MMOL/L (98-107); CHOLESTEROL LEVEL 165 MG/DL (<200); CHOLESTEROL RISK RATIO 3.43 (<5); CREATININE FOR GFR 1.14 MG/DL (0.70-1.30); GLOMERULAR FILTRATION RATE > 60.0 (>42); GLUCOSE, FASTING 99 MG/DL (74-106); HDL CHOLESTEROL 48.1 MG/DL (>40); LDL CHOLESTEROL 84.1 MG/DL (<100); NON-HDL-C 116.9 MG/DL; POTASSIUM SERUM 4.1 MMOL/L (3.5-5.1); SODIUM LEVEL 129 MMOL/L (136-145); TOTAL PROTEIN 7.5 G/DL (5.7-8.2); TRIGLYCERIDES LEVEL 164 MG/DL (<150)
[2023-11-29 17:50] LABS: HEMOGLOBIN 16.6 g/dl (13.5-17.5); MEAN CORPUSCULAR HEMOGLOBIN 32.2 pg (27.0-33.0); MEAN CORPUSCULAR HGB CONC 35.3 g/dl (32.0-36.5); MEAN CORPUSCULAR VOLUME 91.1 fl (80.0-96.0); PLATELET COUNT, AUTOMATED 306 10^3/uL (150-450); RED BLOOD COUNT 5.16 10^6/uL (4.30-6.10)
== END ==
LOC: M SFHCCLAY 09:34
PROVIDERS: ATTEND Family Medicine
DX: I10 Essential (primary) hypertension (principal); E78.2 Mixed hyperlipidemia

== ENCOUNTER → 2024-03-06 | Outpatient (REF) | payer MEDICARE ==
[2024-03-06 17:38] LABS: BASO # 0.1 10^3/uL (0.0-0.2); BASO % 0.9 % (0.0-1.0); EOS # 0.4 10^3/uL (0.0-0.5); EOS % 2.5 % (0.0-3.0); HEMATOCRIT 47.7 % (42.0-52.0); HEMOGLOBIN 16.4 g/dl (13.5-17.5); LYMPH % 21.9 % (24.0-44.0); MEAN CORPUSCULAR HEMOGLOBIN 32.5 pg (27.0-33.0); MEAN CORPUSCULAR HGB CONC 34.4 g/dl (32.0-36.5); MEAN CORPUSCULAR VOLUME 94.5 fl (80.0-96.0); MONO # 0.9 10^3/uL (0.0-0.8); MONO % 6.5 % (2.0-8.0); NEUTROPHILS # 9.3 10^3/uL (1.5-8.5); NEUTROPHILS % 67.5 % (36.0-66.0); PLATELET COUNT, AUTOMATED 300 10^3/uL (150-450); RED BLOOD COUNT 5.05 10^6/uL (4.30-6.10); WHITE BLOOD COUNT 13.8 10^3/uL (4.0-10.0)
[2024-03-06 17:52] LABS: ALBUMIN 4.4 G/DL (3.2-5.2); ALKALINE PHOSPHATASE 91 U/L (40-129); ALT/SGPT 39 U/L (7.0-40); AST/SGOT 25 U/L (<34); BILIRUBIN,TOTAL 0.5 MG/DL (0.3-1.2); BLOOD UREA NITROGEN 21 MG/DL (9-23); CALCIUM LEVEL 10.3 MG/DL (8.3-10.6); CARBON DIOXIDE LEVEL 28 MMOL/L (20-31); CHLORIDE LEVEL 102 MMOL/L (98-107); CREATININE FOR GFR 1.14 MG/DL (0.70-1.30); GLOMERULAR FILTRATION RATE > 60.0 (>42); GLUCOSE, FASTING 91 MG/DL (74-106); POTASSIUM SERUM 3.8 MMOL/L (3.5-5.1); SODIUM LEVEL 136 MMOL/L (136-145); TOTAL PROTEIN 7.7 G/DL (5.7-8.2)
== END ==
LOC: M SFHCCLAY 11:06
PROVIDERS: ATTEND Family Medicine
DX: E78.2 Mixed hyperlipidemia (principal); J44.1 Chronic obstructive pulmonary disease with (acute) exacerbation